=== PATIENT | male | born 1950 | race Caucasian/White ===

== ENCOUNTER → 2022-07-15 | Outpatient (CLI) | payer MEDICARE, MEDICAID ==
[2022-07-15 12:53] LABS: BASOPHIL % 0.6 % (0.0-0.2); EOSINOPHIL # 0.1 10^3/uL (0.0-0.2); EOSINOPHIL % 2.8 % (0.0-5.0); LYMPHOCYTES # 1.69 10^3/uL1 (1.0-4.8); LYMPHOCYTES % 33.5 % (24.0-44.0); MEAN CORP HGB 32.7 pg (26-34); MONOCYTES # 0.4 10^3/uL (0.3-0.8); MONOCYTES % 7.7 % (5.0-12.0); NEUTROPHIL # 2.8 10^3/uL (1.8-7.7); NEUTROPHILS % 55.2 % (41.0-85.0); PLATELET COUNT 163 10^3/uL (150-400); RED CELL DISTRIBUTION WIDTH 13.1 % (11.5-14.5)
[2022-07-15 13:03] LABS: CARBON DIOXIDE 23.4 mmol/L (20.0-32)
== END | disposition home or self-care (01) ==
LOC: NPLAB 12:34
PROVIDERS: ATTEND Internal Medicine
DX: I12.9 Hypertensive chronic kidney disease with stage 1 through stage 4 chronic kidney disease, or unspecified chronic kidney disease (principal); E11.22 Type 2 diabetes mellitus with diabetic chronic kidney disease; N18.9 Chronic kidney disease, unspecified
CPT/HCPCS: 80053; 80061; 83036; 85025